=== PATIENT | male | born 1970 | race Hispanic/Latino ===

== ENCOUNTER → 2022-12-02 09:26 | Outpatient (CLI) | payer OTHER, SELFPAY ==
--- NOTE | 2022-12-02 | DI.RAD.S_ITS ---
PROCEDURE: XR HIP W PEL IF DONE ALLISON MIN 4V INDICATIONS: Pain in unspecified hip/Low back pain, unspecified TECHNIQUE: AP pelvis with lateral view(s) of the right and left hip(s). COMPARISON: None. FINDINGS: Bones: Degenerative changes of both hips are mild. No fractures or dislocations. Pelvic ring appears intact. No suspicious bony lesions. Soft tissues: The visualized bowel gas pattern is normal. No suspicious soft tissue calcifications. IMPRESSION: Mild degenerative changes of the hips. No acute abnormality. Dictated by: Jalen Jacobo M.D. on 12/02/2022 at 14:14 Approved by: Jalen Jacobo M.D. on 12/02/2022 at 14:15
--- NOTE | 2022-12-02 | DI.RAD.S_ITS ---
PROCEDURE: XR LUMBAR SPINE 2-3V INDICATIONS: Pain in unspecified hip/Low back pain, unspecified TECHNIQUE: 3 views of the lumbar spine were acquired. COMPARISON: [facility], CT, CT KUB, 04/07/2019, 2:35. FINDINGS: Bones: 5 [id number] vertebrae are present. There is normal bony alignment. No vertebral body compression fractures. No suspicious bony lesions. There is anterior height loss of L1 unchanged compared to prior CT on 04/07/2019. Facet arthrosis in the lower lumbar spine. The sacroiliac joints have degenerative changes. Soft tissues: Overlying bowel gas pattern is normal. No suspicious soft tissue calcifications. The aorta has atherosclerotic calcifications. IMPRESSION: 1. No acute abnormality. 2. Anterior height loss of L1, unchanged compared to prior CT on 04/07/2019. Dictated by: Jalen Jacobo M.D. on 12/02/2022 at 14:15 Approved by: Jalen Jacobo M.D. on 12/02/2022 at 14:19
--- NOTE | 2022-12-02 | DI.RAD.S_ITS ---
PROCEDURE: XR CERVICAL SPINE 2V OR 3V INDICATIONS: Pain in unspecified hip/Low back pain, unspecified TECHNIQUE: 3 view(s) of the cervical spine were acquired. COMPARISON: None. FINDINGS: Bones: No fractures or dislocations to the T1 level. Mild degenerative changes in the lower cervical spine. The lateral masses of C1 appear intact on the odontoid view. No suspicious bony lesions. No significant disc space narrowing. Soft tissues: No prevertebral soft tissue swelling. IMPRESSION: 1. No acute abnormality of the cervical spine. 2. Degenerative changes in the lower cervical spine are mild. 3. No significant disc space narrowing. Dictated by: Jalen Jacobo M.D. on 12/02/2022 at 14:19 Approved by: Jalen Jacobo M.D. on 12/02/2022 at 14:20
== END ==
PROVIDERS: PCP Family Medicine; Referring Provider Internal Medicine Cardiovascular Disease; Visit Provider Internal Medicine Cardiovascular Disease
DX: M54.2 Cervicalgia (principal); M47.812 Spondylosis without myelopathy or radiculopathy, cervical region; M47.816 Spondylosis without myelopathy or radiculopathy, lumbar region; M54.50 Low back pain, unspecified; M25.559 Pain in unspecified hip
CPT/HCPCS: 72040; 72100; 73522